=== PATIENT | female | born 1950 | race Caucasian/White ===

== ENCOUNTER → 2016-10-29 | Outpatient (CLI) | payer OTHER ==
--- NOTE | ~2016-10-29 | 2DMMODE ---
[facility] [place] [address] 2 D/M-MODE ECHOCARDIOGRAM Name: HIGINIONANCYCarlotta MCMULLEN Room #: REG [facility]#: [id number] Admission: 10/29/16 Attend Phys: Jamal Webster MD Discharge: Date of : 54 Date of Service: 10/29/16 1200 Report #: [id number] THIS REPORT FOR: //name// APPROVED REPORT Study performed: 10/29/2016 10:43:31 EXAM: Comprehensive 2D, Doppler, and color-flow Echocardiogram Patient Location: Out-Patient Blood Pressure: 118/70 mmHg HR: 79 bpm Other Information Study Quality: Good Indications Hypertension/HDD 2D Dimensions RVDd: 28.97 mm LVEF(%): 57.60 (>50%) IVSd: 15.93 (7-11mm) LVOT Diam: 17.91 (18-24mm) LVDd: 37.56 mm PWd: 16.41 (7-11mm) Ascending Aorta: 24.62 mm LVDs: 26.39 (25-40mm) IVC: 18.00 mm Aortic Root: 25.32 mm Akins's LVEF: 57.60 % Volumes Left Atrial Volume (Systole) Single Plane 4CH: 23.67 mL Single Plane 2CH: 23.70 mL LA ESV Index: 16.00 mL/m2 Aortic Valve AoV Peak Dereje.: 1.27 m/s AO Peak Gr.: 6.44 mmHg LV Max P.13 mmHg LV Max: 1.02 m/s Mitral Valve MV PHT: 70.12 ms MV E Max Dereje.: 0.76 m/s E/A Ratio: 0.6 MV A Dereje.: 1.20 m/s MV Decel. Time: 241.80 ms [facility] [address] [place] [address] 2 D/M-MODE ECHOCARDIOGRAM Name: HIGINIONANCY BENEDICT Room #: REG [facility]#: [id number] Admission: 10/29/16 Attend Phys: Jamal Webster MD Discharge: Date of : 54 Date of Service: 10/29/16 1200 Report #: [id number] Pulmonary Valve PV Peak Dereje.: 1.06 m/s PV Peak Gr.: 4.47 mmHg MT End Vmax: 1.46 m/s Tricuspid Valve TR Peak Dereje.: 2.45 m/s RAP Estimate: 5.00 mmHg TR Peak Gr.: 23.93 mmHg Left Ventricle The left ventricle is normal size. There is normal LV segmental wall motion. Moderate concentric left ventricular hypertrophy. Left ventricular systolic function is normal. LVEF is 60-65%. Grade I - abnormal relaxation pattern. Right Ventricle The right ventricle is normal size. The right ventricular systolic function is normal. Atria The left atrium size is normal. The right atrium size is normal. Aortic Valve The aortic valve is normal in structure. Aortic valve is calcified. No aortic regurgitation is present. There is no aortic valvular stenosis. Mitral Valve The mitral valve is normal in structure. Mitral annular calcification is moderate. Trace mitral regurgitation. Tricuspid Valve The tricuspid valve is normal in structure. There is trace tricuspid regurgitation. The right atrial pressure is estimated at 5 mmHg. There is no pulmonary hypertension. The estimated PAP was 29 mmHg. Pulmonic Valve The pulmonary valve is normal in structure. Trace to mild pulmonic regurgitation. Great Vessels The aortic root is normal in size. IVC is normal in size and collapses >50% with inspiration. Pericardium [facility] [address] [place] [address] 2 D/M-MODE ECHOCARDIOGRAM Name: NANCY SYLVESTER Room #: REG [facility]#: [id number] Admission: 10/29/16 Attend Phys: Jamal Webster MD Discharge: Date of : 54 Date of Service: 10/29/16 1200 Report #: [id number] There is no pericardial effusion. <Conclusion> The left ventricle is normal size. Left ventricular systolic function is normal. The right ventricle is normal size. The left atrium size is normal. There is no aortic valvular stenosis. The mitral valve is normal in structure. Mitral annular calcification is moderate. There is trace tricuspid regurgitation. The right atrial pressure is estimated at 5 mmHg. There is no pulmonary hypertension. The estimated PAP was 29 mmHg. <ELECTRONICALLY SIGNED> By: Jamal Webster MD 10/29/161199 99 99 Jamal Webster MD /INF
== END ==
LOC: NUC 09:27
DX: I10 Essential (primary) hypertension (principal)

== ENCOUNTER → 2019-11-15 | Outpatient (CLI) | payer OTHER | LOC: SJCVC 10:33 → SJCVCIMAG 10:33 | DX: I65.23 Occlusion and stenosis of bilateral carotid arteries (principal); I10 Essential (primary) hypertension; E78.00 Pure hypercholesterolemia, unspecified; K21.9 Gastro-esophageal reflux disease without esophagitis; Z79.899 Other long term (current) drug therapy ==

== ENCOUNTER → 2019-12-20 | Outpatient (CLI) | payer OTHER | LOC: SJCVCIMAG 10:24 | PROVIDERS: ATTEND Internal Medicine Cardiovascular Disease | DX: R06.02 Shortness of breath (principal); I10 Essential (primary) hypertension; E78.00 Pure hypercholesterolemia, unspecified; R13.10 Dysphagia, unspecified; E78.5 Hyperlipidemia, unspecified; Z86.2 Personal history of diseases of the blood and blood-forming organs and certain disorders involving the immune mechanism; Z87.898 Personal history of other specified conditions; Z91.040 Latex allergy status; Z91.010 Allergy to peanuts ==